=== PATIENT | male | born 1970 | race Caucasian/White ===

== ENCOUNTER 2021-06-28 19:13 | Emergency (ER) | payer MEDICAID, OTHER ==
[~2021-06-28] VITALS: Ht 175.3 cm; Wt 68.0 kg
--- NOTE | 2021-06-28 19:25 | NUR ---
called the pt, pt not in the waiting room nor outside er waiting room.
== END 2021-06-28 19:58 | disposition left against medical advice (07) ==
LOC: ER 19:15
DX: Z53.21 Procedure and treatment not carried out due to patient leaving prior to being seen by health care provider (principal)

== ENCOUNTER 2021-06-29 06:44 | Emergency (ER) | payer SELFPAY ==
--- NOTE | 2021-06-29 06:48 | NUR ---
Patient was called to be traiged but was not in the waiting room. Was seen by other staff member leaving thr hospital's property. PATIENT WAS NOT TRAIGE OR SEEN BY ERMD.
== END 2021-06-29 06:53 | disposition left against medical advice (07) ==
LOC: ER 06:51
DX: Z53.21 Procedure and treatment not carried out due to patient leaving prior to being seen by health care provider (principal)

== ENCOUNTER 2022-02-14 21:53 | Emergency (ER) | payer OTHER ==
[~2022-02-14] VITALS: Ht 185.4 cm; Wt 88.5 kg
--- NOTE | 2022-02-14 23:00 | NUR ---
received patient able to follow simple command , room air , skin is very dry , very poor hygiene , left forearm abscess , incontinent of bowel
--- NOTE | 2022-02-14 23:08 | NUR ---
bs 87, patient is fed sandwiches and juices , independently eating , no aspiraton noted
--- NOTE | 2022-02-14 23:30 | NUR ---
assisted the doctor to draw blood on the groin , since patientis known to be hard stick , with multiple attempt of nurses to place iv , with no success , patient is combative and and slightly agressive
[2022-02-14 23:50] LABS: HEMATOCRIT 37.3 % (36.7-47.1); MEAN CORPUSCULAR HEMOGLOBIN 30.6 uug (23.8-33.4); MEAN CORPUSCULAR VOLUME 94.3 fL (73.0-96.2); PLATELET COUNT (AUTO) 208 K/uL (152-348)
[2022-02-15] LABS: ETHANOL 406 MG/DL (0-0)
[2022-02-15 00:12] LABS: CARBON DIOXIDE 25 mmol/L (21-32); CHLORIDE 108 mmol/L (98-107); CREATININE 0.8 mg/dL (0.6-1.3); GLUCOSE 112 mg/dL (74-106); POTASSIUM 3.8 mmol/L (3.5-5.1); UREA NITROGEN, BLOOD 11 mg/dL (7-18)
--- NOTE | 2022-02-15 00:20 | NUR ---
notified md of lactic acid and alcohol level
[2022-02-15 00:27] LABS: ALANINE AMINOTRANSFERASE 32 U/L (16-63); ALKALINE PHOSPHATASE 93 U/L (50-136); ASPARTATE AMINOTRANSFERASE 37 U/L (15-37); BILIRUBIN,DIRECT 0.1 mg/dL (0.0-0.2); BILIRUBIN,TOTAL 0.2 mg/dL (0.2-1.0); TOTAL PROTEIN, SERUM 7.6 g/dL (6.4-8.2)
[2022-02-15 00:35] LABS: ACETAMINOPHEN < 2.0 ug/mL (10-30)
[2022-02-15 01:13] LABS: *BILIRUBIN,URIN NEGATIVE (NEGATIVE); *CLARITY,URINE CLEAR (CLEAR); *COLOR,URINE YELLOW (YELLOW); *KETONES,URINE NEGATIVE (NEGATIVE); *UROBILINOGEN,URINE 0.2 E.U./dl (NORMAL); LEUKOCYTE ESTERASE ,URINE NEGATIVE (NEGATIVE); NITRITE, URINE NEGATIVE (NEGATIVE); PH,URINE 5.5 (5.0-8.0); UGLUCOSE NEGATIVE (NEGATIVE)
[2022-02-15 01:14] LABS: *BLOOD, URINE TRACE (NEGATIVE); BACTERIA,URINE NONE SEEN /HPF (NONE SEEN); SQUAMOUS EPITHELIAL CELL,UR NONE SEEN /HPF (NONE SEEN); WBC,URINE NONE SEEN /HPF (0-3)
[2022-02-15 01:29] LABS: *AMPHETAMINE, URINE NEGATIVE (NEGATIVE); *CANNABINOID, URINE NEGATIVE (NEGATIVE); *COCCAINE, URINE NEGATIVE (NEGATIVE); *OPIATE, URINE NEGATIVE (NEGATIVE); *PHENCYCLIDINE SCREEN,URINE NEGATIVE (NEGATIVE)
[2022-02-15] MEDS ORDERED: THIAMINE HCL 200 MG/2 ML VIAL IV ONE (03:30)
[2022-02-15] MEDS ORDERED: IV NS 1000 ML 1,000 ML IV ONE (03:30)
[2022-02-15] MEDS ORDERED: FOLIC ACID 5 MG/ML VIAL IV ONE (03:30)
[2022-02-15] MEDS ORDERED: THIAMINE HCL 200 MG/2 ML VIAL ONE (03:34)
[2022-02-15] MEDS ORDERED: MAGNESIUM SULFATE/D5W 100 ML ONE ×2 (03:35→04:59)
[2022-02-15] MEDS: MAGNESIUM SULFATE/D5W 100 ML IV SCH ×2 (03:37→04:45)
--- NOTE | 2022-02-15 07:13 | NUR ---
PT IS IN ROOM #1B. PT IS RESTING COMFORTABLY IN BED. NO S/S OF DISTRESS.
--- NOTE | 2022-02-15 08:36 | NUR ---
DEPUTY CLERK OF [employer]PER[employer] ART WAS CALLED TO EVALUATE THE PT, [facility] WAS CALLED TO TALK TO THE PT ACCORDING TO ART REQUEST.
[2022-02-15] MEDS ORDERED: IV NORMAL SALINE 500 ML BAG IV ONE (09:30)
[2022-02-15] MEDS ORDERED: IBUPROFEN 600 MG TABLET PO ONE (10:45)
[2022-02-15] MEDS ORDERED: PANT40TA2 PO (10:47)
[2022-02-15] MEDS ORDERED: ONDA4TAB5 PO (10:47)
--- NOTE | 2022-02-15 11:04 | NUR ---
PT REFUSED NUTRITIONAL HEALTH COACH ASSESSMENT. PT DECIDED TO LEAVE [facility]. PT WAS DISCHARGED FROM [facility] BY DR DUARTE. D/C INSTRUCTIONS GIVEN TO THE PT. GAIT IS STABLE. PT DENIES PAIN. NO NAUSEA. NO SOB. NO DIZZINESS.
[2022-02-15 11:21] VITALS: BP 147/88
== END 2022-02-15 11:22 | disposition home or self-care (01) ==
LOC: ER 21:55
DX: T51.0X1A Toxic effect of ethanol, accidental (unintentional), initial encounter (principal); G92.9 Unspecified toxic encephalopathy; Y92.512 Supermarket, store or market as the place of occurrence of the external cause; F10.129 Alcohol abuse with intoxication, unspecified; Y90.8 Blood alcohol level of 240 mg/100 ml or more; M79.602 Pain in left arm; D72.819 Decreased white blood cell count, unspecified; M62.82 Rhabdomyolysis; I45.10 Unspecified right bundle-branch block; D64.9 Anemia, unspecified
CPT/HCPCS: 36415 ×2; 80048; 80076; 80299; 80307; 80320; 81001; 82550; 82962; 83605 ×2; 84484; 85025; 87040; 93005; 96361; 96365; 96366; 96375; 99285; J3411; J3475 ×2; C1758; G0480; J3490; J7030; J7040

== ENCOUNTER 2024-01-06 04:00 | Emergency (ER) | payer OTHER ==
[~2024-01-06] VITALS: Ht 182.9 cm; Wt 90.7 kg
[~2024-01-06 04:00] MED LIST: ONDA4TAB5 PO; PANT40TA2 PO
[2024-01-06] MEDS ORDERED: ONDA4TAB5 PO (04:13)
[2024-01-06] MEDS ORDERED: NAPR-1009 PO (04:14)
[2024-01-06] MEDS ORDERED: NAPROXEN 500 MG TABLET ONE (04:19)
[2024-01-06] MEDS ORDERED: ONDANSETRON HCL 4 MG TABLET ONE (04:19)
[2024-01-06] MEDS: NAPROXEN 500 MG TABLET PO ONE (04:29)
[2024-01-06] MEDS: ONDANSETRON HCL 4 MG TABLET PO ONE (04:29)
[2024-01-06 06:32] VITALS: BP 118/78; O2SAT 99
== END 2024-01-06 06:32 | disposition home or self-care (01) ==
LOC: ER 04:02
DX: M79.601 Pain in right arm (principal); F32.A Depression, unspecified; Z79.899 Other long term (current) drug therapy
CPT/HCPCS: A4606; A4663; Q0162